=== PATIENT | male | born 1945 | race Caucasian/White ===

== ENCOUNTER → 2016-12-13 | Outpatient (CLI) | payer MEDICARE, OTHER ==
[~2016-12-13] MED LIST: CARAFATE D1 GM/10 ML PO; COMPAZINE10 MG PO; DEXAMETHASONE4 MG PO; ENDOCET 5-3251 EACH PO; HYDROCODONE 5MG/5 MG PO; IMODIUM DPS2 MG PO; LEVAQUIN DPS750 MG PO; OXY IR DPS5 MG PO; OXYCONTIN15 MG PO; PRILOSEC DPS20 MG PO; PROTONIX IV40 MG IV; ZANTAC DPS150 MG PO; ZOSYN 3.3753.375 GM IV; [UNRECOGNIZED DRUG - OTHER] PO
== END | disposition home or self-care (01) ==
LOC: RAD.S 12-12 15:00
PROC: 0D2DXUZ Change Feeding Device in Lower Intestinal Tract, External Approach (ICD-10-PCS; principal; 2016-12-13)
DX: K94.23 Gastrostomy malfunction (principal); C25.0 Malignant neoplasm of head of pancreas; K90.9 Intestinal malabsorption, unspecified; C61 Malignant neoplasm of prostate; K21.9 Gastro-esophageal reflux disease without esophagitis

== ENCOUNTER → 2016-12-14 | Outpatient (CLI) | payer MEDICARE, OTHER | END | disposition home or self-care (01) | LOC: RAD.S 09:30 | PROC: 3E0H3KZ Introduction of Other Diagnostic Substance into Lower GI, Percutaneous Approach (ICD-10-PCS; principal; 2016-12-14) | DX: K94.23 Gastrostomy malfunction (principal) ==

== ENCOUNTER 2016-12-15 07:08 | Day surgery (SDC) | payer MEDICARE, OTHER ==
[~2016-12-15] VITALS: Ht 163.8 cm; Wt 64.0 kg
[~2016-12-15 07:08] MED LIST changes: -CARAFATE D1 GM/10 ML PO; -COMPAZINE10 MG PO; -ENDOCET 5-3251 EACH PO; -IMODIUM DPS2 MG PO; -OXY IR DPS5 MG PO; -OXYCONTIN15 MG PO; -PRILOSEC DPS20 MG PO; -PROTONIX IV40 MG IV; -ZOSYN 3.3753.375 GM IV
[2017-01-29] MEDS ORDERED: PRILOSEC DPS20 MG PO (14:23)
[2017-01-29] MEDS ORDERED: OXY IR DPS5 MG PO (14:24)
[2017-01-29] MEDS ORDERED: OXYCONTIN15 MG PO (14:24)
[2017-01-29] MEDS ORDERED: COMPAZINE10 MG PO (14:25)
[2017-01-29] MEDS ORDERED: ENDOCET 5-3251 EACH PO (14:25)
[2017-01-29] MEDS ORDERED: IMODIUM DPS2 MG PO (14:26)
[2017-01-29] MEDS ORDERED: CARAFATE D1 GM/10 ML PO (14:27)
[2017-02-08] MEDS ORDERED: PROTONIX IV40 MG IV (14:19)
[2017-02-08] MEDS ORDERED: ZOSYN 3.3753.375 GM IV (14:20)
== END 2016-12-15 10:37 | disposition home or self-care (01) ==
LOC: RAD.S 07:08 → EDSTATUS 08:30 → RAD.S 10:37
PROC: 0D20XUZ Change Feeding Device in Upper Intestinal Tract, External Approach (ICD-10-PCS; principal; 2016-12-15)
DX: K94.23 Gastrostomy malfunction (principal); K21.0 Gastro-esophageal reflux disease with esophagitis; Z79.891 Long term (current) use of opiate analgesic; Z79.899 Other long term (current) drug therapy

== ENCOUNTER → 2016-12-21 | Outpatient (CLI) | payer MEDICARE, OTHER ==
[~2016-12-21] MED LIST changes: +CARAFATE D1 GM/10 ML PO; +COMPAZINE10 MG PO; +ENDOCET 5-3251 EACH PO; +IMODIUM DPS2 MG PO; +OXY IR DPS5 MG PO; +OXYCONTIN15 MG PO; +PRILOSEC DPS20 MG PO; +PROTONIX IV40 MG IV; +ZOSYN 3.3753.375 GM IV
== END | disposition home or self-care (01) ==
LOC: RAD.S 08:18
DX: R13.10 Dysphagia, unspecified (principal); C25.0 Malignant neoplasm of head of pancreas; C61 Malignant neoplasm of prostate; K21.9 Gastro-esophageal reflux disease without esophagitis; K90.9 Intestinal malabsorption, unspecified

== ENCOUNTER 2017-01-24 16:07 | Inpatient (IN) | payer MEDICARE, OTHER ==
[~2017-01-24] VITALS: Ht 163.8 cm; Wt 72.0 kg
--- NOTE | ~2017-01-24 | CO ---
ADMIT: 01/24/2017 RM/LOC: 305 [facility] MR#: [id number] [address] [address] ZAHIDA DOMINGUEZ [address] [place] [address] Consultation SEX: M AGE: 71 : 1945 Corrected: 01/25/2017 1218 ruby DATE OF CONSULTATION: 01/25/2017 ATTENDING PHYSICIAN: Yobany Arshad CONSULTING PHYSICIAN: Familia De La Torre MD HISTORY OF PRESENT ILLNESS: The patient is a very pleasant, 71-year-old male with a known history of metastatic pancreatic cancer who has had biliary obstruction and biliary stenting on multiple occasions in the recent past with a history of chemotherapy. It is a nonoperative pancreatic cancer. He has a J- tube in place for feedings and has gotten progressively weaker at home. Had an episode of emesis here recently that he thought it was dark, but he did not notice any bloody or black stools. He has been tolerating his tube feeds, although on workup on being admitted, he had a hemoglobin of 5.6. He was transfused and I was asked to see for possible upper endoscopy. He does have a history of peptic ulcer disease but does take omeprazole twice a day at home. PAST MEDICAL HISTORY: Includes history of metastatic pancreatic cancer. He has had history of a biliary stent erosion and duodenal ulcer that I had diagnosed some time ago. I think they are involved some type of stent change. MEDICATIONS: Include: 1. Amiloride. 2. Omeprazole. 3. Oxycodone. SOCIAL HISTORY: He is a retired teacher. Nondrinker and nonsmoker. FAMILY HISTORY: Noncontributory. REVIEW OF SYSTEMS: He has had some weakness. No headaches, no cough, no shortness of breath, no abdominal pain, no melena. ADMIT: 01/24/2017 RM/LOC: 305 [facility] MR#: [id number] [address] [address] ZAHIDA DOMINGUEZ [address] [place] [address] Consultation SEX: M AGE: 71 : 1945 PHYSICAL EXAMINATION: VITAL SIGNS: He is afebrile. Vitals stable. HEART: Regular. LUNGS: Clear. ABDOMEN: Soft, nondistended, and nontender. EXTREMITIES: No peripheral edema. NEUROLOGICAL: No focal neurologic deficits. ASSESSMENT/PLAN: The patient is a 71-year-old with emesis and history of peptic ulcer disease with anemia. Our plan is for upper endoscopy evaluation. We will hopefully get this scheduled for later today. Familia De La Torre MD/ eva JOB #: [id number] CC: Yobany Arshad, Attending Physician Yobany Arshad, Family Physician Corrected: 01/25/2017 1218 ruby
--- NOTE | ~2017-01-24 | HP ---
ADMIT: 01/24/2017 RM/LOC: 305 [facility] [place]#: [id number] [address] [address] ZAHIDA DOMINGUEZ [address] [place] [address] History and Physical SEX: M AGE: 71 : 1945 DATE OF SERVICE: CHIEF COMPLAINT: Weakness. HISTORY OF PRESENT ILLNESS: The patient is a very pleasant, 71-year-old gentleman with metastatic pancreatic cancer, history of prior chemotherapy, biliary stenting, who presents to [facility] Emergency Room today with complaints of weakness, just had to be helped up off the floor today, just was so weak, and also just dizzy. In the emergency room, the patient notes has just not been doing well. No chemo for five weeks, but just not really able to take much by mouth. He is doing all of his tube feedings, doing three cans of tube feeding per day and then just taking a little supplements. This is just a generalized weakness in general. No chest pain. No shortness of breath. No fevers or chills. Has been having some intermittent nausea, but also has had some vomiting occasionally, maybe once a week, had his last episode about three days ago when he did have some dark emesis. He has also been having some loose stools, but denies any black and tarry stools or any blood. He denies any real nausea right now. As mentioned, no fevers or chills, no dysuria, no chest pain is noted. In the emergency room, his hemoglobin was noted to be 5.6 and lactic acid 4.7. He is admitted for further evaluation and treatment. PAST MEDICAL HISTORY: 1. Metastatic carcinoma of the pancreas, status post chemotherapy, none for the last five weeks. 2. He has a history of malnutrition, status post PEG and J-tube. 3. History of duodenal ulcer secondary to his prior biliary stenting with erosion of that. He now has a duodenal stent in place that was looked at about 6 weeks ago and was in good place. 4. History of metastatic prostate cancer. 5. History of gout. 6. History of hypertension. 7. History of diverticulitis. CURRENT MEDICATIONS: Include: 1. Amiloride. 2. Omeprazole. 3. Oxycodone. SOCIAL HISTORY: He is . He is a retired teacher. Not a current drinker or smoker. FAMILY HISTORY: Noncontributory. REVIEW OF SYSTEMS: As noted above. All other systems reviewed and negative. PHYSICAL EXAMINATION: VITAL SIGNS: 96.5, 95, 16, 106/65, saturating well on room air. GENERAL: This is a very thin gentleman appears his stated age. No ADMIT: 01/24/2017 RM/LOC: 305 [facility] MR#: [id number] [address] [address] [place]IDA [place] [address] History and Physical SEX: M AGE: 71 : 1945 apparent distress. Alert and oriented x3. Cooperative with examiner. HEENT: Normocephalic and atraumatic. Noted alopecia. His mucous membranes are actually pretty moist. NECK: Supple. LUNGS: Clear. HEART: Regular. ABDOMEN: He has got a J-tube in place. He is soft, nontender, and nondistended. Positive bowel sounds throughout. He does have a little excoriation around the G-tube site. EXTREMITIES: Show 1+ edema in feet, ankles, and calves bilaterally. NEUROLOGIC: Cranial nerves are intact. No focal deficits are noted. LABORATORY AND X-RAY DATA: Lab work shows a hemoglobin 5.6, white count 12.5, and 286,000 platelets. Sodium 139, potassium 3.5, BUN is 22, creatinine 0.8, calcium was 7.7, AST 64, ALT 47, alkaline phosphatase 477, and total bilirubin is 0.6. Mag is 1.9. Troponin 0.047. INR was 1.25. His last CA-19-9 in the last part of December was greater than 17,000. Lactic acid 4.7. Blood cultures are pending. Urine and urine cultures are pending. His chest x-ray shows a right Ddysvy-L-[id number], otherwise I do not see any other air space disease at this time. ASSESSMENT AND PLAN: 1. Accidental fall. 2. Weakness with malnutrition. 3. Nausea, question coffee-grounds emesis. 4. Anemia. 5. Lactic acidosis, rule out sepsis. 6. Metastatic pancreatic cancer with history of prior duodenal stenting. 7. Prior history of duodenal ulcer. 8. Malnutrition. At this time, the patient actually looks hemodynamically okay. Pressures and heart rates are good. At least 2 units of packed red cells will be doing an H and H. After that we will plan on hydrating with some normal saline. Question etiology of this is all anemia of chronic disease or if this coffee-grounds emesis a few days ago was the start of some type of GI bleeding event. Plan on H and H after 3 units ADMIT: 01/24/2017 RM/LOC: 305 [facility] MR#: [id number] [address] [place] [phone] ZAHIDA DOMINGUEZ [address] [place] [address] History and Physical SEX: M AGE: 71 : 1945 of packed red cells. Certainly with this lactic acid high, I think it is probably a distributive shock more than anything not from any acute blood loss. We will follow trend that out as well, but will be covering him with broad-spectrum antibiotics, blood and urine cultures. His blood culture is pending. Urine cultures are pending. I do not see any obvious sources right now. We will plan on making sure he is on proton pump inhibitor right now. Depending on how he does in the next 24 hours, we would definitely think about upper endoscopy to evaluate for peptic ulcer disease with a mildly elevated troponin likely due to the overall picture of things, we will trend those out. No current chest pain is noted. Currently, the patient is a full code. We will watch him closely in the ICU. Yobany Arshad MD/ eva JOB #: [id number] CC: Yobany Arshad, Attending Physician Yobany Arshad, Family Physician
[~2017-01-24 16:07] MED LIST changes: -CARAFATE D1 GM/10 ML PO; -COMPAZINE10 MG PO; -ENDOCET 5-3251 EACH PO; -IMODIUM DPS2 MG PO; -OXY IR DPS5 MG PO; -OXYCONTIN15 MG PO; -PRILOSEC DPS20 MG PO; -PROTONIX IV40 MG IV; -ZOSYN 3.3753.375 GM IV
--- NOTE | 2017-01-27 07:52 | CO ---
ADMIT: 01/24/2017 RM/LOC: 305 [facility] MR#: [id number] [address] [address] ZAHIDA DOMINGUEZ [address] [place] [address] Consultation SEX: M AGE: 71 : 1945 DATE OF CONSULTATION: 01/25/2017 ATTENDING PHYSICIAN: Yobany Arshad CONSULTING PHYSICIAN: Viet Guerra MD REASON FOR CONSULTATION: Metastatic pancreatic cancer. HISTORY OF PRESENT ILLNESS: The patient is a 71-year-old male, whom we follow closely in our clinic for his metastatic pancreatic cancer that was initially discovered in September of 2014. He has been treated with extensive chemotherapy over time and has done remarkably well given the extent of his original presentation. His most recent therapy has been on gemcitabine and Abraxane, but his overall functional status has been declining in recent months and therefore, we have held his chemotherapy since 12/16/2016. He has had recent CT scans just two weeks ago that showed overall stable disease and therefore, we decided we are going to keep him on observation alone without chemotherapy. However of concern is his tumor marker which had been down to 475 in August and has risen now fairly quickly to 3000, then 8000, and now 17,000. Obviously, the concern would be that he has relapsed disease in recent weeks. He presented to the emergency room with some hematemesis and quite significant fatigue. He was found to have a hemoglobin of 5. He has been given 2 units of blood and is undergoing an upper endoscopy yet today. He is feeling better with hydration. He admits to having poor oral intake in recent days. He has minimal pain. He states that he is very much at peace with his overall situation and understands that his cancer is likely progressing to a final stage. We did have a very long talk today and it does sound like he would ultimately still want to be treated with some chemotherapy if we had meaningful options for him. He has discussed hospice at length with his family and with us in our clinic and is not quite ready for that phase yet. PAST MEDICAL HISTORY: 1. Metastatic pancreatic cancer. 2. Prostate cancer. 3. History of recurrent stomach and duodenal ulcers. 4. Hypertension. ALLERGIES: REVIEWED IN THE CHART. MEDICATIONS: Reviewed in the chart. SOCIAL HISTORY: The patient is to [place]. He is retired from the school system. He is a nonsmoker and does not use alcohol. He has four children of his own and Luda has two children as well who merged together in their second marriages. He has been for 27 years. FAMILY HISTORY: He is not aware of any recurrent hereditary malignancies in the family. ADMIT: 01/24/2017 RM/LOC: 305 [facility] MR#: [id number] [address] [address] ZAHIDA DOMINGUEZ [address] [place] [address] Consultation SEX: M AGE: 71 : 1945 REVIEW OF SYSTEMS: See HPI. Otherwise, complete review of systems was obtained and is negative. PHYSICAL EXAMINATION: VITAL SIGNS: Temp is 99, pulse 78, respirations 16, blood pressure 116/64. GENERAL: The patient is in no acute distress and provides me good history. He is alert and oriented. HEENT: Mucous membranes are moist. No oral lesions are seen. Extraocular muscles were intact. Pupils are reactive and symmetrical. NECK: Without adenopathy or JVD. HEART: Regular rate and rhythm without murmur. LUNGS: Clear to auscultation bilaterally without any crackles or wheezes. ABDOMEN: Soft, nontender, nondistended. Positive bowel sounds throughout. No splenomegaly is appreciated. EXTREMITIES: No edema, rashes, lesions, or adenopathy is seen. LABORATORY DATA: White count 5.2, hemoglobin 7.3, platelets 144. Bilirubin is 2.9, albumin 1.6, AST 130. Rest of his labs are unremarkable. IMPRESSION: 1. Metastatic pancreatic cancer, currently being treated with observation alone but with concern of his rising tumor marker for possible relapse. 2. Anemia likely from gastrointestinal blood loss. RECOMMENDATIONS: I agree with his current workup. I will await his upper endoscopy study. I spent over 90 minutes with the patient today discussing his overall situation in terms of his cancer and how he would like to proceed in terms of his aggressiveness. He is still wanting to take chemotherapy if we have any meaningful options remaining. He is not ready for hospice, but is ADMIT: 01/24/2017 RM/LOC: 305 [facility] MR#: [id number] [address] [place] [phone] [place] [address] Consultation SEX: M AGE: 71 : 1945 very much at peace with his mortality. He can see that he has started to decline. I was quite honest with him today about his situation. I told him that the chance of responding to the next line of chemotherapy is probably only 20% or 30% and if he does not respond or if he chooses not to take any treatment, I would probably expect his life expectancy to be less than six months. However, he has certainly been better than we expected and therefore, our next salvage chemotherapy regimen may provide him much more benefit than we expect. Again, he would like to continue with aggressive therapy for now. I will follow him during this hospital stay and we will see him shortly after his discharge. I appreciate this consultation. Viet Guerra MD/ eva JOB #: [id number] CC: Yobany Arshad, Attending Physician Yobany Arshad, Family Physician
--- NOTE | 2017-01-27 10:26 | OR ---
ADMIT: 01/24/2017 RM/LOC: 305 [facility] MR#: [id number] 2620 [facility] [address] [place] [id number] ZAHIDA DOMINGUEZ [address] [place] [address] Operative/Delivery Room Report SEX: M AGE: 71 : 1945 SURGERY DATE: 01/25/2017 SURGEON: Familia De La Torre MD PRE-PROCEDURE DIAGNOSIS: Anemia. POSTPROCEDURE DIAGNOSIS: Ulcerative duodenum adjacent to duodenal stent with diffuse ooze and/or bleeding. PROCEDURE: EGD. INDICATIONS: The patient is a 71-year-old with a duodenal stent with known pancreatic cancer with a GJ tube in place, who presents for upper endoscopy due to severe anemia. FINDINGS: The patient was taken to endoscopy suite, IV sedation was given, placed in the left lateral decubitus position. A bite block was placed in the patient's mouth. The gastroscope was introduced down the oropharynx, down the esophagus, into the stomach, where we identified the GJ tube that appeared non complicating. The J-tube went through the pylorus through the duodenal sweep as expected. We were able to identify the duodenal stent and along the duodenal mucosa adjacent to the stent, there was a large amount of ulcerogenic changes and easy friability and bleeding associated with this stent and associated duodenal inflammation. I used an irrigant to irrigate most of the debris in this area. There was just a slow very general ooze and/or bleeding. No discrete vessel was seen. I really could not see anything where I could make a difference with an Endo clip and/or injection that would improve what I was looking at. I am not sure if removing the stent, allowing some short period of healing, and maybe possibly replacement of the stent could be of some use or I will discuss the patient's current ability to tolerate oral intake at all if he is ultimately just fed through the jejunum and takes nothing orally. He may benefit from just having possibly the stent removed to allow some healing. Familia De La Torre MD/ vea JOB #: [id number] CC: Yobany Arshad, Attending Physician Yobany Arshad, Family Physician
--- NOTE | 2017-01-29 12:33 | DS ---
ADMIT: 01/24/2017 RM/LOC: 528 [facility] MR#: [id number] [address] [address] ZAHIDA DOMINGUEZ [address] [place] [address] Discharge Summary SEX: M AGE: 71 : 1945 ADMISSION DATE: 01/24/2017 DISCHARGE DATE: 01/27/2017 DISCHARGE DIAGNOSES: 1. Acute blood loss anemia. 2. Upper GI (gastrointestinal) bleed secondary to leonel stent duodenal ulceration. 3. Lactic acidosis resolved. 4. Metastatic pancreatic cancer status post biliary stenting and duodenal stenting. 5. Malnutrition on tube feeds. 6. History of metastatic prostate cancer. CONSULTATIONS: Familia De La Torre MD, with General Surgery. PROCEDURES: EGD. REASON FOR ADMISSION: A very pleasant, 71-year-old gentleman with history of metastatic prostate cancer, prior duodenal stenting presented to [facility] emergency room on the day of admission with complaints of just weakness and a near fall. He was noted to have a hemoglobin of 5.6 and issues with nausea and just not feeling well with that low hemoglobin. He was also noted to have a lactic acid greater than 5, and he was admitted for further evaluation and treatment. For complete details, please see H and P dictated on the day of admission. HOSPITAL COURSE: At the time of admission, patient was placed in an ICU bed. He was typed and crossed and received a total of 4 units of packed red cells during his hospitalization. He was also given IV fluids. He was kumar cultured, blood, urine and started on broad-spectrum antibiotics with that high lactic acid. Cultures were negative. Chest x-ray was fine, urine was fine. The lactic acid was just thought to be to a distributive shock with his severe anemia. His hemoglobin came up nicely to the 8 range from 5.6 after he had no blood or melena. He was started on proton pump inhibitor, of course, through the IV, and General Surgery was consulted for EGD given this nausea as he did also later question some coffee-grounds emesis that he might have had. He underwent an upper endoscopy, the duodenal stent was noted to be in place but there were some areas of ulceration around the stent. There were no cyndee visible vessels or active bleeding that was treated at that time, it was just an area of just some very slight oozing was noted, but the patient tolerated the procedure well. He was returned to the ICU for which he was downgraded to telemetry status with his great improvement. His hemoglobin stayed stable. He was continued on his proton pump inhibitor, eventually changed to oral proton pump inhibitor and Carafate was added for this. He ambulated and ate without difficulty. He had been on tube feeds as his primary source of nutrition at home, and so he was continued on tube feeds but thought he would like to try overnight feeds instead of bolus feeds. He did well with the overnight pump feeds, and with him doing well with PT and OT, he was thought to be ready for discharge home on 01/27. Discussed with patient options ADMIT: 01/24/2017 RM/LOC: 528 [facility] MR#: [id number] [address] [place] [id number] [place] [address] Discharge Summary SEX: M AGE: 71 : 1945 concerning that duodenal stent, and we will have him see [facility]ology for further stent management. DISCHARGE DIET: As tolerated with tube feedings overnight per his feeding tube pump. DISCHARGE ACTIVITY: As tolerated. He will follow up with his oncologist as well as we will get him set up for gastroenterology appointment at [facility] as I do question whether if he is getting all of his feeds jejunally right now, if we could remove that duodenal stent even for a short period time to let that heal. Might be an option but would obviously want to see what Gastroenterology has to say first. Yobany Arshad MD/ erum JOB #: [id number] CC: Yobany Arshad MD, Attending Physician Yobany Arshad MD, Family Physician Viet Guerra MD
[2017-01-29] MEDS ORDERED: PRILOSEC DPS20 MG PO (14:23)
[2017-01-29] MEDS ORDERED: OXYCONTIN15 MG PO (14:24)
[2017-01-29] MEDS ORDERED: OXY IR DPS5 MG PO (14:24)
[2017-01-29] MEDS ORDERED: ENDOCET 5-3251 EACH PO (14:25)
[2017-01-29] MEDS ORDERED: COMPAZINE10 MG PO (14:25)
[2017-01-29] MEDS ORDERED: IMODIUM DPS2 MG PO (14:26)
[2017-01-29] MEDS ORDERED: CARAFATE D1 GM/10 ML PO (14:27)
--- NOTE | 2017-01-30 10:31 | ER ---
ADMIT: 01/24/2017 RM/LOC: 305 [facility] MR#: [id number] [address] [facility] [address] [place] [phone] ZAHIDA DOMINGUEZ [address] [place] [address] Emergency Room Report SEX: M AGE: 71 : 1945 DATE: 01/24/2017 ADDENDUM: A 71-year-old white male with pancreatic cancer and prostate cancer, but the worst is his pancreatic cancer. Today he has come in weaker and then kind of got to the point where he just kind of lowered himself to the ground. His pressure was 80/59, just at the 65 MAP. We started the sepsis protocol and treatment anyway. He has been receiving fluids. He does have a hemoglobin of 5.6, restarted blood along with fluids. He has a lactate of 4.7. Other lab is negative. Chest x-ray is negative. I did speak to Dr. Guerra, who has been kind of following his cancer as it appears to be terminal . Also spoke with his primary Dr. Arshad, who will admit him at least so we can get his hemoglobin up and transfuse him. We will also start antibiotics as well as the 30 per mL fluid resuscitation. He is advised, understands. CONDITION ON DISCHARGE: Serious, but stable at this time. Seamus Bravo MD/ modl JOB #: [id number] CC: Yobany Arshad MD, Attending Physician Yobany Arshad MD, Family Physician
[2017-02-08] MEDS ORDERED: PROTONIX IV40 MG IV (14:19)
[2017-02-08] MEDS ORDERED: ZOSYN 3.3753.375 GM IV (14:20)
== END 2017-01-27 12:25 | disposition home health service (06) | DRG 949 ==
LOC: ER 16:07 → 5MS 18:18 → 3ICU 18:18 → 5MS 01-26 17:37
PROVIDERS: ADMIT Internal Medicine
PROC: 30233N1 Transfusion of Nonautologous Red Blood Cells into Peripheral Vein, Percutaneous Approach (ICD-10-PCS; principal; 2017-01-24)
PROC: 3E0G76Z Introduction of Nutritional Substance into Upper GI, Via Natural or Artificial Opening (ICD-10-PCS; 2017-01-25)
PROC: 0DJ08ZZ Inspection of Upper Intestinal Tract, Via Natural or Artificial Opening Endoscopic (ICD-10-PCS; 2017-01-25)
DX: T85.838A Hemorrhage due to other internal prosthetic devices, implants and grafts, initial encounter (principal); K26.4 Chronic or unspecified duodenal ulcer with hemorrhage; R57.8 Other shock; E46 Unspecified protein-calorie malnutrition; E87.2 Acidosis; C25.9 Malignant neoplasm of pancreas, unspecified; C79.9 Secondary malignant neoplasm of unspecified site; D50.0 Iron deficiency anemia secondary to blood loss (chronic); C61 Malignant neoplasm of prostate; I10 Essential (primary) hypertension; D63.8 Anemia in other chronic diseases classified elsewhere; R53.1 Weakness; K57.90 Diverticulosis of intestine, part unspecified, without perforation or abscess without bleeding; R11.2 Nausea with vomiting, unspecified; Z91.81 History of falling; Z96.89 Presence of other specified functional implants; Z93.1 Gastrostomy status; Z87.11 Personal history of peptic ulcer disease

== ENCOUNTER → 2017-01-30 | Outpatient (CLI) | payer MEDICARE, OTHER ==
[~2017-01-30] MED LIST changes: +CARAFATE D1 GM/10 ML PO; +COMPAZINE10 MG PO; +ENDOCET 5-3251 EACH PO; +IMODIUM DPS2 MG PO; +OXY IR DPS5 MG PO; +OXYCONTIN15 MG PO; +PRILOSEC DPS20 MG PO; +PROTONIX IV40 MG IV; +ZOSYN 3.3753.375 GM IV
== END | disposition home or self-care (01) ==
LOC: RAD.S 13:00
PROC: 0D2DXUZ Change Feeding Device in Lower Intestinal Tract, External Approach (ICD-10-PCS; principal; 2017-01-30)
DX: Z46.59 Encounter for fitting and adjustment of other gastrointestinal appliance and device (principal); C25.0 Malignant neoplasm of head of pancreas; C61 Malignant neoplasm of prostate; K90.9 Intestinal malabsorption, unspecified

== ENCOUNTER → 2017-02-04 | Outpatient (CLI) | payer MEDICARE, OTHER | END | disposition home or self-care (01) | LOC: RAD.S 09:29 | DX: R60.9 Edema, unspecified (principal); I82.612 Acute embolism and thrombosis of superficial veins of left upper extremity ==

== ENCOUNTER 2017-02-06 09:03 | Inpatient (IN) | payer MEDICARE, OTHER ==
[~2017-02-06] VITALS: Ht 163.8 cm; Wt 73.9 kg
[~2017-02-06 09:03] MED LIST changes: -PROTONIX IV40 MG IV; -ZOSYN 3.3753.375 GM IV
[2017-02-08] MEDS ORDERED: PROTONIX IV40 MG IV (14:19)
[2017-02-08] MEDS ORDERED: ZOSYN 3.3753.375 GM IV (14:20)
--- NOTE | 2017-02-10 09:30 | HP ---
ADMIT: 02/06/2017 RM/LOC: 313 [facility] MR#: [id number] [address] [address] ZAHIDA DOMINGUEZ [address] [place] [address] History and Physical SEX: M AGE: 71 : 1945 DATE OF SERVICE: HISTORY OF PRESENT ILLNESS: The patient is a very pleasant 71-year-old gentleman has past medical history of metastatic pancreatic cancer and metastatic prostate cancer, status post duodenal stenting with duodenitis and known duodenal ulcer with recent hospitalization for an upper gastrointestinal bleed here at [facility] earlier in the month. The patient was actually seen last week, he was stabilized and discharge. He was seen last week for followup with hemoglobin 6.4, and a couple episodes of melena. He decided at that time, he did not wish hospitalization for further evaluation. He was given a couple of packed units on the , was given a couple units packed red cells in Oncology. The patient notes just this morning felt very weak, dizzy, lightheaded, stumbled, and even a kind of collapsed onto his bed at home, and his had hard time getting him up and that is what brought him into the emergency room, he still noted some nausea. He has had a melanotic stool at least once a day, black, sticky, and tarry, but is also noted coffee- ground emesis. No bright red blood has been noted. Denies fevers, chills, chest pain, or shortness of breath. In the emergency room, he was dizzy and weak, found to have hemoglobin of 7. He is admitted for further evaluation and treatment. For past medical history, social history, and family history, please see previous dictated H and P and discharge summary as well as Dr. De La Torre's consults and procedure notes. MEDICATIONS: His current home medications include: 1. Omeprazole. 2. OxyContin. 3. Amiloride. 4. Oxycodone. 5. Compazine. 6. Lomotil. 7. Carafate. REVIEW OF SYSTEMS: Noted above. All system reviewed, negative. PHYSICAL EXAMINATION: VITAL SIGNS: 96.8, 95, 18, 109/79, 97% on room air. GENERAL: This is a thin, almost cachectic-appearing gentleman, he is no apparent distress. He is awake and alert. He is oriented x3. Cooperative with examiner. HEENT: Normocephalic and atraumatic. Mucous membranes are dry. NECK: Supple. LUNGS: Clear. HEART: Regular. ABDOMEN: He has a G-tube in place. He is soft. He is nondistended. He is nontender right now. EXTREMITIES: Some trace ankle edema. NEUROLOGIC: Cranial nerves are intact. SKIN: Shows no obvious rashes. ADMIT: 02/06/2017 RM/LOC: 313 [facility] MR#: [id number] [address] [place] [id number] [place] [address] History and Physical SEX: M AGE: 71 : 1945 LABORATORY DATA: His hemoglobin is 7 today, white count 10.7 with platelets 309,000. Mag is 1.8. Sodium 140, potassium 3.3, BUN is 27, creatinine 0.5, and bicarb is 29. Mag was 1.8. ASSESSMENT AND PLAN: 1. Weakness/fatigue. 2. Melena/hematemesis. 3. History of recent upper gastrointestinal bleed, duodenitis post duodenal stent. 4. Acute blood loss anemia. 5. History of duodenal stenting. 6. Metastatic pancreatic cancer. 7. Metastatic prostate cancer. 8. Malnutrition, status post PEG tube. 9. Long discussion with the patient today, the patient is not quite sure how much more aggressive he wants to be, would like to think about it. Plan on IV Protonix. We will plan on 1 unit of packed red cells. N.P.O. except for sips. Anti-emetics, pain medications are planned. We will follow him closely. Certainly, would be hospice candidate based on everything right now, but is not quite sure if he wants to go to [facility] for further endoscopic evaluation, although I am unsure that will be able help him. 10.Hypokalemia. We will follow closely here in PCU status, replace electrolytes. Yobany Arshad MD/ eva JOB #: [id number] CC: Yobany Asrhad, Attending Physician Yobany Arshad, Family Physician
--- NOTE | 2017-02-17 09:59 | DS ---
ADMIT: 02/06/2017 RM/LOC: 313 [facility] MR#: [id number] [address] [address] ZAHIDA DOMINGUEZ [address] [place] [id number] Discharge Summary SEX: M AGE: 71 : 1945 ADMISSION DATE: 02/06/2017 DISCHARGE DATE: 02/07/2017 DISCHARGE DIAGNOSES: 1. Upper GI (gastrointestinal) bleeding, acute on chronic. 2. Duodenal ulcer. 3. Acute on chronic blood loss anemia. 4. Metastatic pancreatic cancer. 5. History of gastric outlet obstruction status post duodenal stenting. 6. History of metastatic prostate cancer. 7. Fever with gram-negative bacteremia. 8. Hypomagnesemia, resolved. CONSULTATIONS: None. PROCEDURES: None. REASON FOR ADMISSION: A 71-year-old gentleman, metastatic prostate cancer and pancreatic cancer status post duodenal stenting with recent episode of duodenitis and duodenal ulcer. Presents to [facility] emergency room noting weakness, anemia, melena, and hematemesis. He had recently just been hospitalized earlier in January for similar symptoms. His hemoglobin was found to be 6.4, and he was admitted for further evaluation and treatment. For complete details, please see H and P dictated on the day of admission. HOSPITAL COURSE: At the time of admission, patient was admitted to the ICU. He was started on IV proton-pump inhibitor and Carafate. He was kept n.p.o. As mentioned, he was started on that Protonix inhibitor. He was typed and crossed for 1 unit of packed red cells. A long discussion took place. Plan to stabilize him for transfer to Gastroenterology in [place] for further evaluation. He did have a fever and some rigors. He underwent blood cultures, his urine culture and chest x-ray all looked okay, but he did grow out gram-negative rods. He was started on Zosyn. He was transfused another ADMIT: 02/06/2017 RM/LOC: 313 [facility] MR#: [id number] [address] [address] ZAHIDA DOMINGUEZ [address] [place] [address] Discharge Summary SEX: M AGE: 71 : 1945 unit of packed red cells. Was a little hypomagnesemic and that was replaced IV. With his ongoing anemia, discussed case with critical care at [facility], and patient was transferred there in stable condition on the 07 of February to undergo gastroenterology evaluation. DIET: Nothing by mouth. ACTIVITY: Bed rest. MEDICATIONS: Are per his discharge medication list. He will continue on the proton-pump inhibitor and Zosyn. Cipro was added for double coverage for Pseudomonas, and he was transferred there on the . Yobany Arshad MD/ erum JOB #: [id number] CC: Yobany Arshad MD, Attending Physician Yobany Arshad MD, Family Physician
--- NOTE | 2017-02-18 08:25 | ER ---
ADMIT: 02/06/2017 RM/LOC: 313 [facility] MR#: [id number] [address] [address] ZAHIDA DOMINGUEZ [address] [place] [address] Emergency Room Report SEX: M AGE: 71 : 1945 DATE: 02/06/2017 ADDENDUM: A 71-year-old male with metastatic pancreatic cancer, I do believe, coming in vomiting blood. Hemoglobin is 7, just got 2 units, I think on Monday. He has had biliary stenting, tube feeding for malnutrition. Also has metastatic prostate cancer. At this time, chemistry is essentially negative. His albumin is down. His alkaline phosphatase is up. INR is 1.3. I spoke with Dr. Arshad, he will probably admit. At this time, he is typed and crossed. CONDITION ON DISCHARGE: Critical. Seamus Bravo MD/ eva JOB #: [id number] CC: Yobany Arshad MD, Attending Physician Yobany Arshad MD, Family Physician
== END 2017-02-07 17:00 | disposition short-term general hospital (02) | DRG 378 ==
LOC: ER 09:03 → 3ICU 11:35
PROVIDERS: ADMIT Internal Medicine
PROC: 30233N1 Transfusion of Nonautologous Red Blood Cells into Peripheral Vein, Percutaneous Approach (ICD-10-PCS; principal; 2017-02-06)
DX: K92.0 Hematemesis (principal); E46 Unspecified protein-calorie malnutrition; C79.9 Secondary malignant neoplasm of unspecified site; C25.9 Malignant neoplasm of pancreas, unspecified; R78.81 Bacteremia; E83.42 Hypomagnesemia; Z93.1 Gastrostomy status; D62 Acute posthemorrhagic anemia; K92.1 Melena; C61 Malignant neoplasm of prostate; E87.6 Hypokalemia; K26.4 Chronic or unspecified duodenal ulcer with hemorrhage; K29.80 Duodenitis without bleeding

== ENCOUNTER 2017-03-05 08:03 | Emergency (ER) | payer MEDICARE, OTHER ==
[~2017-03-05 08:03] MED LIST changes: +PROTONIX IV40 MG IV; +ZOSYN 3.3753.375 GM IV
--- NOTE | 2017-03-06 16:11 | ER ---
ADMIT: 03/05/2017 RM/LOC: ER [facility] MR#: [id number] [address] [address] ZAHIDA DOMINGUEZ [address] [place] [address] Emergency Room Report SEX: M AGE: 71 : 1945 DATE: 03/05/2017 ADDENDUM: A 71-year-old white male with metastatic prostate and pancreatic cancer. Sent over from [facility]. He has severe metastatic disease, not treatable at this time. White count 9.1. Liver function tests are up. Lactic is negative. Troponin is 0.089. He evidently spiked a fever over there. We got no fever over here. Chest x-ray, question of infiltrate in the right; however, CT scan shows bilateral pleural effusions. Again, could be part of his metastatic disease. He is already being treated over there with antibiotics. He is complaining of abdominal discomfort that shows increase in ascites fluid as well as increase in metastatic lesions to the liver. I spoke with Dr. Esquivel. They are going to continue treating him as patient at [facility] because essentially he is a comfort measure DNR/DNI. DIAGNOSES: 1. Metastatic pancreatic cancer, end stage. 2. Prostate cancer, apparently metastatic. 3. Malignant ascites of his abdomen. 4. Metastatic lesions to the liver. 5. Hypoalbuminemia. 6. Elevated liver function tests. 7. Bilateral pleural effusions. TREATMENT: At this time, I spoke with the family and the patient. They are comfortable with going back. Dr. Ye will give additional orders as needed. CONDITION ON DISCHARGE: Serious but stable at this time. Seamus Bravo MD/ eva JOB #: [id number] CC: Seamus Bravo MD, Attending Physician Yobany Arshad MD, Family Physician
== END 2017-03-05 12:50 | disposition home or self-care (01) ==
LOC: ER 08:03
DX: J90 Pleural effusion, not elsewhere classified (principal); E88.09 Other disorders of plasma-protein metabolism, not elsewhere classified; R94.5 Abnormal results of liver function studies; C76.2 Malignant neoplasm of abdomen; R18.0 Malignant ascites; C78.89 Secondary malignant neoplasm of other digestive organs; C61 Malignant neoplasm of prostate; Z86.2 Personal history of diseases of the blood and blood-forming organs and certain disorders involving the immune mechanism; Z79.899 Other long term (current) drug therapy